=== PATIENT | male | born 1985 | race Caucasian/White ===

== ENCOUNTER 2016-10-02 15:33 | Emergency (ER) | payer BC, OTHER ==
[~2016-10-02] VITALS: Ht 200.7 cm; Wt 91.1 kg
[2016-10-02 15:38] VITALS: TEMP 37; Ht 200.7 cm; Wt 91.1 kg
[2016-10-02] MEDS ORDERED: NAPROXEN 250 MG TAB PO STA (16:17)
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
[2016-10-02] MEDS ORDERED: CYCL10TA6 PO (17:37)
[2016-10-02 17:44] VITALS: BP 128/82; PULSE 58; O2SAT 100
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
== END 2016-10-02 17:48 | disposition home or self-care (01) ==
LOC: C.EDB 15:33 → C.EDD 17:48
DX: M54.2 Cervicalgia (principal); M54.5 Low back pain; V43.52XA Car driver injured in collision with other type car in traffic accident, initial encounter

== ENCOUNTER → 2016-10-22 | Outpatient (CLI) | payer OTHER, BC ==
[~2016-10-22] MED LIST: CYCL10TA6 PO; PRED50TA PO
--- NOTE | 2016-10-22 12:33 | DIAGNOSTIC IMAGING REPORT ---
MRI OF THE CERVICAL SPINE WITHOUT IV CONTRAST CLINICAL HISTORY: Right upper extremity radiculopathy. Neck pain. COMPARISON STUDY: Radiograph of the cervical spine dated 10/02/2016. TECHNIQUE: MRI of the cervical spine is performed utilizing various T1 and T2-weighted sequences in the axial and sagittal planes. IV contrast was not administered for this examination. FINDINGS: Cervical spine: Vertebral body height and alignment are maintained throughout the cervical spine. Normal marrow signal intensity is preserved throughout the visualized bony structures. The spinous processes appear intact. The atlantodental articulation is maintained. Intervertebral discs: Normal in height and signal intensity. Spinal cord: The cervical spinal cord is normal in morphology and signal intensity. C2-C3: Unremarkable. C3-C4: Unremarkable. C4-C5: Unremarkable. C5-C6: There is minimal facet arthropathy of no consequence. The central canal and neural foramina are widely patent. C6-C7: Unremarkable. C7-T1: Unremarkable. Soft tissues: The prevertebral and paraspinous soft tissues are within normal limits. Brain parenchyma: Partially imaged brain parenchyma at the skull base is within normal limits. IMPRESSION: 1. There is no disc herniation, central canal stenosis, or neural foraminal narrowing seen throughout the cervical spine. 2. The cervical spinal cord is normal in morphology and signal intensity. Electronically signed by: Gentry Fernández M.D. 10/22/2016 12:32 PM Dictated Date/Time: 10/22/2016 12:29 PM
== END | disposition home or self-care (01) ==
LOC: C.MRIBC 11:35
PROVIDERS: ATTEND Family Medicine Sports Medicine
DX: M62.838 Other muscle spasm (principal); M54.2 Cervicalgia; M79.2 Neuralgia and neuritis, unspecified

== ENCOUNTER 2016-12-24 23:44 | Emergency (ER) | payer BC, OTHER ==
[~2016-12-24] VITALS: Ht 200.7 cm; Wt 94.1 kg
[2016-12-24 23:51] VITALS: TEMP 36.7; Ht 200.7 cm; Wt 94.1 kg
[2016-12-25] MEDS ORDERED: CYCL10TA6 PO (00:27)
[2016-12-25] MEDS ORDERED: PRED50TA PO (00:27)
[2016-12-25] MEDS ORDERED: NORCO 5/325MG HOME PACK PO ONE (00:30)
[2016-12-25 00:40] VITALS: BP 129/63; PULSE 60; O2SAT 99
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
== END 2016-12-25 00:40 | disposition home or self-care (01) ==
LOC: C.EDB 23:45
DX: M54.5 Low back pain (principal)

== ENCOUNTER → 2016-12-27 | Outpatient (CLI) | payer BC, OTHER ==
--- NOTE | 2016-12-27 16:45 | DIAGNOSTIC IMAGING REPORT ---
L-SPINE MIN 4 VIEWS ROUTINE CLINICAL HISTORY: Low back pain COMPARISON STUDY: September 2016 FINDINGS: No fractures or subluxations are visualized. There are no erosive or destructive changes. Minor endplate deformities are felt to be old/developmental IMPRESSION: No fractures, subluxations, or destructive lesions are visualized. Electronically signed by: Jose Miguel Yeager M.D. 12/27/2016 4:43 PM Dictated Date/Time: 12/27/2016 4:42 PM
--- NOTE | 2016-12-31 13:07 | CODING QUERY NO DIAGNOSIS ---
TREATMENT RENDERED WITHOUT A DIAGNOSIS To promote full compliance with coding requirements relating to patient care, physician participation is requested in all cases of clinical support manager uncertainty. Please assist us with providing a diagnosis/symptom for the test(s) below: A diagnosis/symptom was not documented on your Order. A valid diagnosis/symptom is required to bill all insurances. Please remember that we are unable to code a diagnosis of rule out, probable, possible, questionable, or suspected. Tests that require a diagnosis: DOS 12/27 * X-Ray Lumbar Spine DIAGNOSIS: Provider Signature: Date: Thank you Desi Santo [facility] Information Management Once completed, please kindly fax back to [phone] For questions please call [phone]
== END | disposition home or self-care (01) ==
LOC: C.RAD1850 16:23
PROVIDERS: ATTEND Physician Assistant
DX: M54.5 Low back pain (principal)